=== PATIENT | female | born 1995 | race Hispanic/Latino ===

== ENCOUNTER 2018-07-27 12:11 | Day surgery (SDC) | payer BC ==
[~2018-07-27 12:11] MED LIST: GARAMYCIN/NS 80 MG/100 ML 100 ML IV SCH
[2018-07-27] MEDS ORDERED: LACTATED RINGERS 1,000 ML ONE (12:56)
[2018-07-27] MEDS ORDERED: DIPRIVAN 10 MG/ML IV ONE (13:19)
[2018-07-27] MEDS ORDERED: SUBLIMAZE ONE ×2 (13:19→14:14)
[2018-07-27] MEDS ORDERED: XYLOCAINE MPF 2% ONE (13:19)
[2018-07-27] MEDS ORDERED: ROBINUL ONE (13:19)
[2018-07-27] MEDS ORDERED: VERSED ONE (13:39)
--- NOTE | 2018-07-27 13:44 | Anesthesia Consultation ---
Anesthesia Consult and Med Hx Date of service: 07/27/18 - Airway Anesthetic Teeth Evaluation: Good ROM Head & Neck: Adequate Mental/Hyoid Distance: Adequate Mallampati Class: Class I Intubation Access Assessment: Good - Pulmonary Exam CTA: Yes - Cardiac Exam Cardiac Exam: RRR - Pre-Operative Health Status ASA Pre-Surgery Classification: ASA2 Proposed Anesthetic Plan: General - Pulmonary Hx Smoking: Yes (1/2 PPD X 6 YRS) Hx Sleep Apnea: No (BREE PRE SCREEN NEGATIVE) - Cardiovascular System Hx Hypertension: Yes (X 2 MONTHS) - Central Nervous System Hx Back Pain: Yes (FROM STONE) - Hematic Hx Anemia: Yes (WITH PREG ONLY- NOT RECENT) - Other Systems Hx Cancer: No
[2018-07-27] MEDS ORDERED: PROAIR IH ONE (13:45)
[2018-07-27] MEDS ORDERED: SUBLIMAZE IV PRN (13:48)
[2018-07-27] MEDS ORDERED: DEMEROL IV PRN (13:48)
[2018-07-27] MEDS ORDERED: DILAUDID IV PRN (13:48)
[2018-07-27] MEDS ORDERED: ZOFRAN IV PRN (13:48)
[2018-07-27] MEDS ORDERED: WATER FOR IRRIG STERILE IR ONE ×2 (14:12→14:14)
[2018-07-27] MEDS ORDERED: OMNIPAQUE (300 MG) IV ONE (14:13)
[2018-07-27] MEDS ORDERED: DECADRON ONE (14:14)
[2018-07-27] MEDS ORDERED: LACTATED RINGERS 1,000 ML IV SCH ×2 (15:00)
--- NOTE | 2018-07-27 15:02 | Short Stay Summary ---
Short Stay Documentation Date of service: 07/27/18 - History H&P: obtained from office - Allergies and Medications Current Medications: Allergies Penicillins Allergy (Verified 07/15/18 13:45) Anaphylaxis Home Medications Medication Instructions Recorded Confirmed Last Taken Type Tamsulosin HCl [Flomax] 0.4 mg PO DAILY #10 cap.er.24h 07/15/18 07/26/18 Unknown Rx traMADol [Ultram] 50 mg PO Q6HR PRN #10 tablet 07/15/18 07/26/18 Unknown Rx ALPRAZolam [Xanax] 1 mg PO TID 07/26/18 07/26/18 Unknown History Atenolol [Tenormin] 12.5 mg PO BID 07/26/18 07/26/18 Unknown History HYDROcodone/APAP 5-325 [[place] 1 each PO Q6HR PRN 07/26/18 07/26/18 Unknown History 5/325] Minocycline (Nf) [Minocin (Nf)] 50 mg PO DAILY 07/26/18 07/26/18 Unknown History Sertraline [Zoloft] 100 mg PO QDAY 07/26/18 07/26/18 Unknown History Active Medications Fentanyl (Sublimaze) 50 mcg IV Q5MIN PRN PRN Reason: Pain , Severe (7-10) Stop: 07/27/18 22:00 Hydromorphone HCl (Dilaudid) 0.25 mg IV Q10MIN PRN PRN Reason: Pain, Moderate (4-6) Gentamicin Sulfate/Sodium Chloride (Garamycin/Ns 80 Mg/100 Ml) 100 mls @ 200 mls/hr IV PREOP DOLORES Stop: 07/27/18 23:59 Lactated Ringer's (Lactated Ringers) 1,000 mls @ 100 mls/hr IV DIRECT DOLORES Lactated Ringer's (Lactated Ringers) 1,000 mls @ 100 mls/hr IV DIRECT DOLORES Meperidine HCl (Demerol) 25 mg IV ONCE PRN PRN Reason: Shivering Ondansetron HCl (Zofran) 4 mg IV ONCE PRN PRN Reason: Nausea And Vomiting - Brief post op/procedure progress note Date of procedure: 07/27/18 Pre-op diagnosis: left ureteral stone Post-op diagnosis: same Procedure: cysto, rpg, left ureteroscopy, basket stone - stent with external string Anesthesia: JOSE Surgeon: MARTÍN SIMON Estimated blood loss: none Condition: stable - Hospital course Hospital course: luz maria horan, post op info on chart - Disposition Condition at discharge: Stable Disposition: DC-01 TO HOME OR SELFCARE Short Stay Discharge Plan Follow up with: LUCA YATES MD [Primary Care Provider] - 7 Days
[2018-07-27 18:45] VITALS: BP 110/67
--- NOTE | 2018-07-27 19:55 | Operative Report ---
PREOPERATIVE DIAGNOSIS: Left distal ureteral stone, 4 mm. POSTOPERATIVE DIAGNOSIS: Left distal ureteral stone, 4 mm. PROCEDURES: Cystoscopy, bilateral retrograde pyelograms, left rigid ureteroscopy, basket stone extraction, double-J stent with an external string (6-Liberian 24 cm). SURGEON: Martir Manzano MD ANESTHESIA: General. ESTIMATED BLOOD LOSS: Minimal. FLUIDS: Crystalloid. COMPLICATIONS: No complications. INDICATIONS: This patient is a 23-year-old female referred by Dr. Ashwin Shirley for evaluation of left flank pain. CT of abdomen and pelvis revealed a 4 mm distal stone. The patient has a strong family history of stones. She has passed stones years ago. Discussed options, she agreed to proceed with surgical intervention. We will also send her urine for metabolic workup. DESCRIPTION OF PROCEDURE: The patient was taken to the operative suite, placed in a supine position. After adequate general anesthesia, placed in a dorsal lithotomy position, prepped and draped in a sterile fashion. Pancystourethroscopy was performed with 22-Liberian Storz cystoscope. No bladder pathology. Both ureteral orifices in normal position. Bilateral retrograde pyelograms were obtained with an 8 Liberian Giovanna catheter and 8 mL of contrast. No filling defects or obstruction on the right and left side, obvious filling defect in the distal aspect. Two 0.035 Glidewires were placed. Rigid ureteroscopy approximately 2 cm proximal to the ureteral orifice, the stone could be appreciated. It was engaged with a 3-Liberian Liza basket and removed. A 6-Liberian 24 cm double-J stent was placed under fluoroscopic guidance. Prior to that, rigid ureteroscopy up to the renal pelvis was performed. No other stones could be appreciated. A stent had an external string, it was left indwelling. Bladder was drained. She was extubated and taken to recovery room in stable condition. The patient has Ultram, [place]. We will give her Cipro today. She is to bring her stone back for analysis. JOB# [id number] [facility]/SUMA
--- NOTE | 2018-07-28 09:07 | Fluoroscopy Report ---
FLUORO RETROGRADE UROGRAPHY INDICATION: Left ureteral stone. COMPARISON: 07/15/2018 CT. IMAGES/CINE CLIPS: 9 FINDINGS: Total of 9 submitted fluoroscopic images. Procedure performed by Dr. Manzano. 10 mL of Omnipaque 300 utilized. Initial emt driver radiographs obtained at a 2:12 PM, 07/27/2018 fails to definitively visualize known 3-4 mm left distal ureteral calculus. Nonobstructive bowel gas pattern. Mild lumbar levoscoliosis apex about L2-L3. Subsequently, bilateral retrograde pyelograms performed. No hydroureteronephrosis on the right. Only left distal ureter opacified from about the inferior margin of the sacrum and does not appear significantly dilated. Left ureteroscopy and basket extraction of the stone also performed. Final 2 images demonstrate left double-J ureteral stent placement. CONCLUSION: Intraoperative fluoroscopic assistance provided for bilateral retrograde pyelograms, left ureteroscopy, basket extraction of left distal ureteral calculus and subsequent stent placement performed, as described. Please also correlate with procedure notes. Thank you for the opportunity to participate in this patient's care.
== END 2018-07-27 17:30 | disposition home or self-care (01) ==
LOC: OR 12:11
PROVIDERS: ATTEND Urology
DX: N20.2 Calculus of kidney with calculus of ureter (principal); I10 Essential (primary) hypertension; F32.9 Major depressive disorder, single episode, unspecified; F41.9 Anxiety disorder, unspecified; F17.210 Nicotine dependence, cigarettes, uncomplicated; Z88.0 Allergy status to penicillin; Z79.899 Other long term (current) drug therapy; Z86.2 Personal history of diseases of the blood and blood-forming organs and certain disorders involving the immune mechanism
CPT/HCPCS: 52332; 52352; 74420; 81025; A4217; C1758; C1769; C2617; J1100; J1580; J2250; J2704; J3010; J7120; Q9967

== ENCOUNTER 2019-05-29 15:40 | Emergency (ER) | payer BC ==
[2019-05-29] MEDS ORDERED: ZOFRAN IV ONE ×2 (16:42→20:10)
[2019-05-29] MEDS ORDERED: NACL 0.9% 1000 ML 1,000 ML IV ONE (16:42)
[2019-05-29 17:05] LABS: Basophils % (Auto) 0.4 % (0.0-1.8); Eosinophils % (Auto) 0.2 % (0.0-4.3); Hematocrit 45.1 % (30.3-42.9); Hemoglobin 15.3 gm/dl (10.1-14.3); Lymphocytes # (Auto) 1.5 K/mm3 (1.2-5.4); Lymphocytes % (Auto) 14.5 % (13.4-35.0); Mean Corpuscular HGB Conc 34 % (30-34); Mean Corpuscular Volume 93 fl (79-97); Monocytes # (Auto) 0.8 K/mm3 (0.0-0.8); Monocytes % (Auto) 7.7 % (0.0-7.3); Platelet Count 260 K/mm3 (140-440); Red Blood Count 4.87 M/mm3 (3.65-5.03)
--- NOTE | 2019-05-29 17:07 | Emergency Department Report ---
ED General Adult HPI - General Chief complaint: Anxiety Stated complaint: ANXIETY Time Seen by Provider: 05/29/19 16:33 Source: patient, EMS Mode of arrival: Stretcher Limitations: No Limitations - History of Present Illness Initial comments: 24-year-old female with a past medical history of hypertension and anxiety presents to the hospital complaints of sudden onset of elevated blood pressure to systolic in the 150s, vomiting, palpitations, and carpal spasms about 1:30 PM. Patient states that she did not take her blood pressure medication last my as scheduled instead to get at 10:00 this morning. Patient also suffers from anxiety and takes 1 mg of Xanax when necessary with last dose this morning. She denies headache, chest pain, shortness of breath, UTI, abdominal pain, melena, hematochezia, hematemesis, fever, recent travel, or recent antibiotic use. No previous abdominal surgeries reported. - Related Data Home Medications Medication Instructions Recorded Confirmed Last Taken ALPRAZolam [Xanax] 1 mg PO TID 07/26/18 05/29/19 05/29/19 Minocycline (Nf) [Minocin (Nf)] 50 mg PO DAILY 07/26/18 05/29/19 05/29/19 Citalopram [celeXA] 20 mg PO QDAY 05/29/19 05/29/19 05/29/19 amLODIPine [Norvasc] 10 mg PO DAILY 05/29/19 05/29/19 05/29/19 Previous Rx's Medication Instructions Recorded Last Taken Type Ondansetron [Zofran Odt] 4 mg PO Q8HR PRN #15 tab.rapdis 05/29/19 Unknown Rx Allergies Allergy/AdvReac Type Severity Reaction Status Date / Time Sulfa (Sulfonamide Allergy Unknown Unknown Verified 05/29/19 16:59 Antibiotics) Penicillins Allergy Anaphylaxis Verified 07/15/18 13:45 ED Review of Systems ROS: Stated complaint: ANXIETY Other details as noted in HPI Comment: All other systems reviewed and negative ED Past Medical Hx - Past Medical History Previous Medical History?: Yes Hx Hypertension: Yes (X 2 MONTHS) Hx Kidney Stones: Yes Hx HIV: No Additional medical history: Hx kidney stones. - Surgical History Past Surgical History?: No - Social History Smoking Status: Former Smoker Substance Use Type: None - Medications Home Medications: Home Medications Medication Instructions Recorded Confirmed Last Taken Type ALPRAZolam [Xanax] 1 mg PO TID 07/26/18 05/29/19 05/29/19 History Minocycline (Nf) [Minocin (Nf)] 50 mg PO DAILY 07/26/18 05/29/19 05/29/19 History Citalopram [celeXA] 20 mg PO QDAY 05/29/19 05/29/19 05/29/19 History Ondansetron [Zofran Odt] 4 mg PO Q8HR PRN #15 tab.rapdis 05/29/19 Unknown Rx amLODIPine [Norvasc] 10 mg PO DAILY 05/29/19 05/29/19 05/29/19 History ED Physical Exam - General Limitations: No Limitations - Other Other exam information: General: No acute distress Head: Atraumatic Eyes: Normal appearance, Pupils equal and reactive to light, extraocular m ovements intact ENT: Normal oropharynx Neck: Normal appearance, no posterior or midline tenderness, no meningismus Chest: Clear to auscultation bilaterally, no wheezes, rales, or crackles CV: Regular rate and rhythm Abdomen: soft, nontender, nondistended, no rebound or guarding Back: Nontender Extremity: Normal inspection, full range of motion, nontender Neuro: Alert and oriented 3, speech clear, no gross motor or sensory deficit Skin: No rash, redness, warmth ED Course Vital Signs 05/29/19 05/29/19 05/29/19 16:09 16:10 18:59 Temperature 97.8 F Pulse Rate 105 H 92 H Respiratory 18 17 Rate Blood Pressure 120/72 Blood Pressure 118/65 [Left] O2 Sat by Pulse 99 99 Oximetry - Reevaluation(s) Reevaluation #1: 05/29/19 20:25 pt request blood alcohol level for her job. ED Medical Decision Making - Lab Data Result diagrams: 05/29/19 16:46 05/29/19 16:46 Lab Results 05/29/19 05/29/19 05/29/19 Range/Units 16:46 16:46 16:46 WBC 10.1 (4.5-11.0) K/mm3 RBC 4.87 (3.65-5.03) M/mm3 Hgb 15.3 H (10.1-14.3) gm/dl Hct 45.1 H (30.3-42.9) % MCV 93 (79-97) fl MCH 32 (28-32) pg MCHC 34 (30-34) % RDW 12.0 L (13.2-15.2) % Plt Count 260 (140-440) K/mm3 Lymph % (Auto) 14.5 (13.4-35.0) % [place] % (Auto) 7.7 H (0.0-7.3) % Eos % (Auto) 0.2 (0.0-4.3) % Baso % (Auto) 0.4 (0.0-1.8) % Lymph # 1.5 (1.2-5.4) K/mm3 [place] # 0.8 (0.0-0.8) K/mm3 Eos # 0.0 (0.0-0.4) K/mm3 Baso # 0.0 (0.0-0.1) K/mm3 Seg Neutrophils % 77.2 H (40.0-70.0) % Seg Neutrophils # 7.8 H (1.8-7.7) K/mm3 Sodium 143 (137-145) mmol/L Potassium 3.5 L (3.6-5.0) mmol/L Chloride 104.0 (98-107) mmol/L Carbon Dioxide 23 (22-30) mmol/L Anion Gap 20 mmol/L BUN 8 (7-17) mg/dL Creatinine 0.6 L (0.7-1.2) mg/dL Estimated GFR > 60 ml/min BUN/Creatinine Ratio 13 % Glucose 82 (65-100) mg/dL Calcium 9.2 (8.4-10.2) mg/dL Magnesium 2.00 (1.7-2.3) mg/dL Total Bilirubin 0.40 (0.1-1.2) mg/dL AST 19 (5-40) units/L ALT 12 (7-56) units/L Alkaline Phosphatase 82 (35-129) units/L Total Protein 7.9 (6.3-8.2) g/dL Albumin 4.7 (3.9-5) g/dL Albumin/Globulin Ratio 1.5 % Lipase 22 (13-60) units/L HCG, Qual Negative (Negative) Urine Color (Yellow) Urine Turbidity (Clear) Urine pH (5.0-7.0) Ur Specific [place] (1.003-1.030) Urine Protein (Negative) mg/dL Urine Glucose (UA) (Negative) mg/dL Urine Ketones (Negative) mg/dL Urine Blood (Negative) Urine Nitrite (Negative) Urine Bilirubin (Negative) Urine Urobilinogen (<2.0) mg/dL Ur Leukocyte Esterase (Negative) Urine WBC (Auto) (0.0-6.0) /HPF Urine RBC (Auto) (0.0-6.0) /HPF U Epithel Cells (Auto) (0-13.0) /HPF Urine Bacteria (Auto) (Negative) /HPF Hyaline Casts /LPF Urine Mucus /HPF Urine Yeast (Budding) /HPF Urine Opiates Screen Urine Methadone Screen Ur Barbiturates Screen Ur Phencyclidine Scrn Ur Amphetamines Screen U Benzodiazepines Scrn Urine Cocaine Screen U Marijuana (THC) Screen Drugs of Abuse Note 05/29/19 05/29/19 Range/Units 18:25 18:25 WBC (4.5-11.0) K/mm3 RBC (3.65-5.03) M/mm3 Hgb (10.1-14.3) gm/dl Hct (30.3-42.9) % MCV (79-97) fl MCH (28-32) pg MCHC (30-34) % RDW (13.2-15.2) % Plt Count (140-440) K/mm3 Lymph % (Auto) (13.4-35.0) % [place] % (Auto) (0.0-7.3) % Eos % (Auto) (0.0-4.3) % Baso % (Auto) (0.0-1.8) % Lymph # (1.2-5.4) K/mm3 [place] # (0.0-0.8) K/mm3 Eos # (0.0-0.4) K/mm3 Baso # (0.0-0.1) K/mm3 Seg Neutrophils % (40.0-70.0) % Seg Neutrophils # (1.8-7.7) K/mm3 Sodium (137-145) mmol/L Potassium (3.6-5.0) mmol/L Chloride (98-107) mmol/L Carbon Dioxide (22-30) mmol/L Anion Gap mmol/L BUN (7-17) mg/dL Creatinine (0.7-1.2) mg/dL Estimated GFR ml/min BUN/Creatinine Ratio % Glucose (65-100) mg/dL Calcium (8.4-10.2) mg/dL Magnesium (1.7-2.3) mg/dL Total Bilirubin (0.1-1.2) mg/dL AST (5-40) units/L ALT (7-56) units/L Alkaline Phosphatase (35-129) units/L Total Protein (6.3-8.2) g/dL Albumin (3.9-5) g/dL Albumin/Globulin Ratio % Lipase (13-60) units/L HCG, Qual (Negative) Urine Color Yellow (Yellow) Urine Turbidity Cloudy (Clear) Urine pH 8.0 H (5.0-7.0) Ur Specific [place] 1.011 (1.003-1.030) Urine Protein <15 mg/dl (Negative) mg/dL Urine Glucose (UA) Neg (Negative) mg/dL Urine Ketones Tr (Negative) mg/dL Urine Blood Sm (Negative) Urine Nitrite Neg (Negative) Urine Bilirubin Neg (Negative) Urine Urobilinogen < 2.0 (<2.0) mg/dL Ur Leukocyte Esterase Neg (Negative) Urine WBC (Auto) 5.0 (0.0-6.0) /HPF Urine RBC (Auto) 3.0 (0.0-6.0) /HPF U Epithel Cells (Auto) 2.0 (0-13.0) /HPF Urine Bacteria (Auto) 2+ (Negative) /HPF Hyaline Casts 2 /LPF Urine Mucus Few /HPF Urine Yeast (Budding) 2+ /HPF Urine Opiates Screen Presumptive negative Urine Methadone Screen Presumptive negative Ur Barbiturates Screen Presumptive negative Ur Phencyclidine Scrn Presumptive negative Ur Amphetamines Screen Presumptive negative U Benzodiazepines Scrn Presumptive negative Urine Cocaine Screen Presumptive negative U Marijuana (THC) Screen Presumptive negative Drugs of Abuse Note Disclamer - Medical Decision Making Patient is stable. Labs unremarkable. Improved symptoms with normal saline and Zofran. Tolerated by mouth without further vomiting. No pain or . Will be discharged home. - Differential Diagnosis gastritis, infection, , arrhythmia Critical Care Time: No Critical care attestation.: If time is entered above; I have spent that time in minutes in the direct care of this critically ill patient, excluding procedure time. ED Disposition Clinical Impression: Nausea & vomiting, Anxiety Disposition: DC-01 TO HOME OR SELFCARE Is pt being admited?: No Does the pt Need Aspirin: No Condition: Stable Instructions: Acute Nausea and Vomiting (ED), Anxiety (ED) Additional Instructions: Take the medication as prescribed. Follow-up with your doctor or the doctor/clinic provided. Return is symptoms worsen as indicated by your discharge instructions. Prescriptions: Ondansetron [Zofran Odt] 4 mg PO Q8HR PRN #15 tab.rapdis PRN Reason: Nausea And Vomiting Referrals: PRIMARY CAREMD [Primary Care Provider] - 3-5 Days [facility] [Provider Group] - 3-5 Days KILEY CH MD [Staff Physician] - 3-5 Days Time of Disposition: 20:41
[2019-05-29 17:20] LABS: Alanine Aminotransferase 12 units/L (7-56); Albumin 4.7 g/dL (3.9-5); BUN/Creatinine Ratio 13; Blood Urea Nitrogen 8 mg/dL (7-17); Calcium 9.2 mg/dL (8.4-10.2); Hemolysis Index 7
[2019-05-29 19:42] LABS: Bacteria,Urine 2+ /HPF (Negative); Bilirubin,Urine NEG (Negative); Blood,Urine SM (Negative); Color,Urine Yellow (Yellow); Hyaline Casts,Urine 2 /LPF; Mucus,Urine FEW /HPF; Protein,Urine <15 mg/dL mg/dL (Negative); Urobilinogen,Urine < 2.0 mg/dL (<2.0)
[2019-05-29 20:04] LABS: Amphetamine Screen,Urine PRESUMPTIVE NEGATIVE; Benzodiazepines Screen,Urine PRESUMPTIVE NEGATIVE; Cannabinoid Screen,Urine PRESUMPTIVE NEGATIVE; Cocaine Screen,Urine PRESUMPTIVE NEGATIVE; Methadone Screen,Urine PRESUMPTIVE NEGATIVE; Opiate Screen,Urine PRESUMPTIVE NEGATIVE
[2019-05-29 20:47] VITALS: BP 125/82
== END 2019-05-29 20:53 | disposition home or self-care (01) ==
LOC: ED 15:40
DX: R11.2 Nausea with vomiting, unspecified (principal); F41.9 Anxiety disorder, unspecified; I10 Essential (primary) hypertension; Z87.442 Personal history of urinary calculi; Z87.891 Personal history of nicotine dependence; Z79.899 Other long term (current) drug therapy; Z88.2 Allergy status to sulfonamides; Z88.0 Allergy status to penicillin
CPT/HCPCS: 36415; 80053; 80307; 81001; 83690; 83735; 84703; 85025; 93005; 93010; 96361; 96374; 96376; 99284; J2405; J7030